=== PATIENT | male | born 2000 | race Caucasian/White ===

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

== ENCOUNTER 2021-06-11 23:19 | Emergency (ER) | payer BC ==
[2021-06-11 23:50] VITALS: BP 129/72; PULSE 76; TEMP 97.9; BMI 24.3
[2021-06-12 00:54] LABS: URINE APPEARANCE TURBID; URINE BILIRUBIN NEGATIVE (NEGATIVE); URINE COLOR YELLOW; URINE GLUCOSE (UA) NEGATIVE (NEGATIVE); URINE KETONE NEGATIVE (NEGATIVE); URINE LEUK ESTERASE NEGATIVE (NEGATIVE); URINE NITRITE NEGATIVE (NEGATIVE); URINE PROTEIN TRACE (NEGATIVE); URINE UROBILINOGEN 0.2 mg/dL (0.2-1.0)
[2021-06-12] MEDS ORDERED: cefTRIAXone SODIUM 1 GM VIAL ONE (01:49)
[2021-06-12] MEDS ORDERED: LIDOCAINE HCL 1%, 10 MG/ML (20ML VIAL) ONE (01:53)
== END 2021-06-12 02:22 | disposition home or self-care (01) ==
LOC: JER 23:19
DX: R30.0 Dysuria (principal); N43.3 Hydrocele, unspecified
CPT/HCPCS: 36415; 76870-TC; 81003; 87086; 87491; 87591; 99284-25